=== PATIENT | female | born 1970 | race Caucasian/White ===

== ENCOUNTER 2017-06-17 09:33 | Day surgery (SDC) | payer OTHER ==
[~2017-06-17] VITALS: Ht 157.5 cm; Wt 80.5 kg
[~2017-06-17 09:33] MED LIST: Aspir 8181 MG; ESOM20; Zofran Odt4 MG SL; Zofran4 MG PO
[2018-02-22] MEDS ORDERED: Kristalose20 GM PO (10:30)
== END 2017-06-17 12:15 | disposition home or self-care (01) ==
LOC: ORSCSDS 09:33
PROVIDERS: Surgery
PROC: 0DBP8ZX Excision of Rectum, Via Natural or Artificial Opening Endoscopic, Diagnostic (ICD-10-PCS; principal; 2017-06-17 11:00)
DX: K92.1 Melena (principal); K62.89 Other specified diseases of anus and rectum; K64.8 Other hemorrhoids; R19.4 Change in bowel habit; F17.210 Nicotine dependence, cigarettes, uncomplicated; Z79.82 Long term (current) use of aspirin; Z79.899 Other long term (current) drug therapy
CPT/HCPCS: 88305; J7120

== ENCOUNTER 2018-05-24 10:44 | Emergency (ER) | payer OTHER ==
[~2018-05-24] VITALS: Ht 154.9 cm; Wt 77.1 kg
[~2018-05-24 10:44] MED LIST changes: +Kristalose20 GM PO
[2018-05-24] MEDS ORDERED: Monodox100 MG PO (11:00)
[2018-05-24] MEDS ORDERED: Indomethacin50 MG PO (11:00)
== END 2018-05-24 11:06 | disposition home or self-care (01) ==
LOC: ER 10:44
DX: L03.317 Cellulitis of buttock (principal); Z88.2 Allergy status to sulfonamides; Z88.1 Allergy status to other antibiotic agents; Z88.5 Allergy status to narcotic agent; Z79.899 Other long term (current) drug therapy; F17.210 Nicotine dependence, cigarettes, uncomplicated
CPT/HCPCS: 99283

== ENCOUNTER → 2018-08-18 | Outpatient (CLI) | payer OTHER ==
[~2018-08-18] MED LIST changes: +Indomethacin50 MG PO; +Monodox100 MG PO
== END | disposition home or self-care (01) ==
LOC: LAB SHORT 12:30 → LAB EV 12:30
DX: T81.40XA Infection following a procedure, unspecified, initial encounter (principal)
CPT/HCPCS: 87070; 87077; 87147; 87186; 87205

== ENCOUNTER 2018-09-28 07:52 | Day surgery (SDC) | payer OTHER | END 2018-09-28 22:43 | disposition home or self-care (01) | LOC: WOUND 07:52 | DX: T81.89XA Other complications of procedures, not elsewhere classified, initial encounter (principal); L98.492 Non-pressure chronic ulcer of skin of other sites with fat layer exposed; I50.9 Heart failure, unspecified; D64.9 Anemia, unspecified; J45.909 Unspecified asthma, uncomplicated | CPT/HCPCS: 87070; 87075; 87081; 87205; G0463 ==

== ENCOUNTER 2019-09-22 21:59 | Emergency (ER) | payer OTHER ==
[~2019-09-22] VITALS: Ht 154.9 cm; Wt 90.7 kg
[2019-09-22] MEDS ORDERED: Monodox100 MG PO (22:40)
[2019-09-22] MEDS ORDERED: Flonase 0.05% N16 GM (22:40)
[2019-09-22] MEDS ORDERED: LISI5 PO (23:09)
[2019-09-22] MEDS ORDERED: FURO20 PO (23:09)
[2019-09-22] MEDS ORDERED: OMEP20ER (23:11)
[2019-09-22] MEDS ORDERED: GUAI600T33 PO (23:12)
== END 2019-09-22 23:17 | disposition home or self-care (01) ==
LOC: ER 21:59
DX: J32.9 Chronic sinusitis, unspecified (principal); F17.210 Nicotine dependence, cigarettes, uncomplicated; Z88.2 Allergy status to sulfonamides; Z88.1 Allergy status to other antibiotic agents; Z88.5 Allergy status to narcotic agent; Z88.0 Allergy status to penicillin; Z79.899 Other long term (current) drug therapy
CPT/HCPCS: 99284

== ENCOUNTER 2021-06-10 19:33 | Emergency (ER) | payer OTHER ==
[~2021-06-10] VITALS: Ht 154.9 cm; Wt 86.2 kg
[~2021-06-10 19:33] MED LIST changes: +FURO20 PO; +Flonase 0.05% N16 GM; +GUAI600T33 PO; +LISI5 PO; +OMEP20ER
[2021-06-10 20:41] LABS: BASOPHILS ABSOLUTE AUTO 0.09 K/mm3 (0.00-0.23); BASOPHILS PERCENT AUTO 1 % (0-2); EOSINOPHILS ABSOLUTE AUTO 0.09 K/mm3 (0.00-0.68); EOSINOPHILS PERCENT AUTO 1 % (0-6); Hematocrit 44.2 % (33.0-51.0); IMMATURE GRAN ABSOLUTE AUTO 0.04 K/mm3 (0.00-0.10); IMMATURE GRAN PERCENT AUTO 0 % (0-1); LYMPHOCYTES ABSOLUTE AUTO 2.87 K/mm3 (0.84-5.20); LYMPHOCYTES PERCENT AUTO 21 % (21-46); MONOCYTES ABSOLUTE AUTO 0.77 K/mm3 (0.16-1.47); MONOCYTES PERCENT AUTO 6 % (4-13); Mean Corpuscular HGB 29.8 pg (26.0-34.0); Mean Corpuscular HGB Conc 33.9 g/dL (31.5-36.5); Mean Corpuscular Volume 88 fL (80-100); Mean Platelet Volume 8.7 fL (9.1-12.4); NEUTROPHILS ABSOLUTE AUTO 9.83 K/mm3 (1.96-9.15); NEUTROPHILS PERCENT AUTO 72 % (41-73); Platelet Count 411 K/mm3 (150-400); RDW Standard Deviation 41.8 fL (35.1-46.3); Red Blood Cell Count 5.03 M/mm3 (3.80-5.20); White Blood Cell Count 13.69 K/mm3 (4.00-11.30)
[2021-06-10 21:06] LABS: International Normalized Ratio 0.94; Prothrombin Time Results 9.9 Sec (9.7-11.5)
[2021-06-10 21:42] LABS: Alanine Aminotransfer (ALT/SGP 39 U/L (12-78); Albumin, Blood 3.7 g/dL (3.4-5.0); Alk Phos 126 U/L (50-136); Anion Gap 10 mmol/L (6-16); Aspartate Aminotrans (AST/SGOT 21 U/L (12-37); Bilirubin, Total 0.9 mg/dL (0.1-1.0); Blood Urea Nitrogen 10 mg/dL (8-24); Bun/Creatinine Ratio 16.7 (12.0-20.0); CO2, Blood 24 mmol/L (21-32); Calcium, Blood 8.9 mg/dL (8.5-10.1); Chloride, Blood 100 mmol/L (98-108); Globulin, Blood 3.7 g/dL (2.2-4.0); Glomerular Filtration Rate >60 (60-); Glucose, Blood 118 mg/dL (70-99); Potassium, Blood 3.5 mmol/L (3.5-5.5); Sodium, Blood 134 mmol/L (136-145); Total Protein, Blood 7.4 g/dL (6.4-8.2); Troponin I <0.015 ng/mL (0.000-0.040)
[2021-06-10 23:22] LABS: Hematocrit 41.4 % (33.0-51.0); Hemoglobin 14.1 g/dL (11.5-16.0); Mean Corpuscular HGB Conc 34.1 g/dL (31.5-36.5); Mean Corpuscular Volume 88 fL (80-100); Platelet Count 365 K/mm3 (150-400); RDW Standard Deviation 42.5 fL (35.1-46.3); White Blood Cell Count 12.03 K/mm3 (4.00-11.30)
[2021-06-11 00:28] LABS: Influenza A, PCR NEGATIVE (NEGATIVE); Influenza B, PCR NEGATIVE (NEGATIVE); Resp Syncytial Virus, PCR NEGATIVE (NEGATIVE); SARS-Cov-2 (COVID-19) PCR, MMC NEGATIVE (NEGATIVE)
== END 2021-06-11 02:40 | disposition short-term general hospital (02) ==
LOC: ER 19:33
PROVIDERS: Physician Assistant; Student in an Organized Health Care Education/Training Program
DX: K92.2 Gastrointestinal hemorrhage, unspecified (principal); R00.0 Tachycardia, unspecified; F17.210 Nicotine dependence, cigarettes, uncomplicated; J44.9 Chronic obstructive pulmonary disease, unspecified; Z79.899 Other long term (current) drug therapy; Z88.2 Allergy status to sulfonamides; Z88.0 Allergy status to penicillin
CPT/HCPCS: 0241U; 36415; 71045; 74177; 80053; 82272; 83605; 84484; 84703; 85025; 85027; 85610; 85730; 86850; 86900; 86901; 93005; 93010; 96365-59; 96366; 96367; 96375; 96376; 99285-25; C9113; J0696; J2270; J2354; J2405; J7050; Q9967

== ENCOUNTER 2023-02-20 19:43 | Emergency (ER) | payer OTHER ==
[~2023-02-20] VITALS: Ht 154.9 cm; Wt 77.1 kg
[2023-02-20 20:57] LABS: BASOPHILS ABSOLUTE AUTO 0.06 K/mm3 (0.00-0.23); BASOPHILS PERCENT AUTO 0 % (0-2); EOSINOPHILS ABSOLUTE AUTO 0.06 K/mm3 (0.00-0.68); EOSINOPHILS PERCENT AUTO 0 % (0-6); Hematocrit 43.4 % (33.0-51.0); Hemoglobin 15.1 g/dL (11.5-16.0); IMMATURE GRAN PERCENT AUTO 1 % (0-1); LYMPHOCYTES ABSOLUTE AUTO 1.15 K/mm3 (0.84-5.20); LYMPHOCYTES PERCENT AUTO 7 % (21-46); MONOCYTES ABSOLUTE AUTO 0.87 K/mm3 (0.16-1.47); MONOCYTES PERCENT AUTO 5 % (4-13); Mean Corpuscular HGB 30.1 pg (26.0-34.0); Mean Corpuscular HGB Conc 34.8 g/dL (31.5-36.5); Mean Corpuscular Volume 87 fL (80-100); Mean Platelet Volume 8.8 fL (9.1-12.4); NEUTROPHILS ABSOLUTE AUTO 14.95 K/mm3 (1.96-9.15); NEUTROPHILS PERCENT AUTO 87 % (41-73); Platelet Count 405 K/mm3 (150-400); RDW Coefficient Variation 12.4 % (11.7-14.2); RDW Standard Deviation 39.2 fL (35.1-46.3); Red Blood Cell Count 5.01 M/mm3 (3.80-5.20); White Blood Cell Count 17.19 K/mm3 (4.00-11.30)
[2023-02-20 21:18] LABS: Albumin, Blood 3.5 g/dL (3.4-5.0); Albumin/Globulin Ratio 0.9 (0.8-1.8); Bilirubin, Total 1.6 mg/dL (0.1-1.0); Bun/Creatinine Ratio 19.7 (12.0-20.0); Calcium, Blood 8.9 mg/dL (8.5-10.1); Creatinine, Blood 0.61 mg/dL (0.40-1.00); Globulin, Blood 3.8 g/dL (2.2-4.0); Potassium, Blood 3.8 mmol/L (3.5-5.5); Total Protein, Blood 7.3 g/dL (6.4-8.2)
[2023-02-21 01:55] LABS: Influenza A, PCR NEGATIVE (NEGATIVE); Influenza B, PCR NEGATIVE (NEGATIVE); Resp Syncytial Virus, PCR NEGATIVE (NEGATIVE)
[2023-02-21 02:02] LABS: SARS-Cov-2 (COVID-19) PCR, MMC POSITIVE (NEGATIVE)
[2023-02-21 05:00] VITALS: BP 120/68
== END 2023-02-21 05:35 ==
LOC: ER 19:43
PROVIDERS: Emergency Medicine; Physician Assistant
DX: K43.6 Other and unspecified ventral hernia with obstruction, without gangrene (principal); E86.0 Dehydration; F17.210 Nicotine dependence, cigarettes, uncomplicated; U07.1 COVID-19; I10 Essential (primary) hypertension; F10.20 Alcohol dependence, uncomplicated; D72.829 Elevated white blood cell count, unspecified; K92.0 Hematemesis; J44.9 Chronic obstructive pulmonary disease, unspecified; Z88.5 Allergy status to narcotic agent; Z88.0 Allergy status to penicillin; Z88.1 Allergy status to other antibiotic agents; Z88.2 Allergy status to sulfonamides; Z79.899 Other long term (current) drug therapy
CPT/HCPCS: 0241U; 74177; 80053; 83605; 83690; 85025; 93005; 93010; 96361; 96374; 96375; 99285-25; C9113; J0780; J1200; J7030; Q9967

== ENCOUNTER 2023-03-06 11:26 | Emergency (ER) | payer OTHER ==
[~2023-03-06] VITALS: Ht 154.9 cm; Wt 81.7 kg
[2023-03-06 14:36] LABS: BASOPHILS ABSOLUTE AUTO 0.15 K/mm3 (0.00-0.23); BASOPHILS PERCENT AUTO 2 % (0-2); EOSINOPHILS ABSOLUTE AUTO 1.05 K/mm3 (0.00-0.68); EOSINOPHILS PERCENT AUTO 11 % (0-6); Hematocrit 41.7 % (33.0-51.0); Hemoglobin 13.9 g/dL (11.5-16.0); IMMATURE GRAN ABSOLUTE AUTO 0.08 K/mm3 (0.00-0.10); IMMATURE GRAN PERCENT AUTO 1 % (0-1); LYMPHOCYTES PERCENT AUTO 24 % (21-46); MONOCYTES ABSOLUTE AUTO 0.46 K/mm3 (0.16-1.47); MONOCYTES PERCENT AUTO 5 % (4-13); Mean Corpuscular HGB 29.6 pg (26.0-34.0); Mean Corpuscular HGB Conc 33.3 g/dL (31.5-36.5); Mean Corpuscular Volume 89 fL (80-100); Mean Platelet Volume 8.3 fL (9.1-12.4); NEUTROPHILS ABSOLUTE AUTO 5.72 K/mm3 (1.96-9.15); NEUTROPHILS PERCENT AUTO 59 % (41-73); Platelet Count 630 K/mm3 (150-400); RDW Coefficient Variation 12.6 % (11.7-14.2); RDW Standard Deviation 40.8 fL (35.1-46.3); Red Blood Cell Count 4.69 M/mm3 (3.80-5.20); White Blood Cell Count 9.76 K/mm3 (4.00-11.30)
[2023-03-06 14:54] LABS: C-REACTIVE PROTEIN, EXT RANGE 1.02 mg/dL (0.000-0.300)
[2023-03-06 15:07] LABS: Albumin, Blood 3.5 g/dL (3.4-5.0); Albumin/Globulin Ratio 0.9 (0.8-1.8); Bilirubin, Total 0.1 mg/dL (0.1-1.0); Bun/Creatinine Ratio 14.7 (12.0-20.0); Calcium, Blood 8.9 mg/dL (8.5-10.1); Creatinine, Blood 0.54 mg/dL (0.40-1.00); Globulin, Blood 4.1 g/dL (2.2-4.0); Potassium, Blood 3.9 mmol/L (3.5-5.5); Total Protein, Blood 7.6 g/dL (6.4-8.2)
[2023-03-06] MEDS ORDERED: Flagyl500 MG PO (16:53)
[2023-03-06] MEDS ORDERED: Cipro500 MG PO (16:53)
[2023-03-06 17:11] VITALS: BP 143/104
== END 2023-03-06 17:11 | disposition home or self-care (01) ==
LOC: ER 11:26
PROVIDERS: Physician Assistant
DX: T81.31XA Disruption of external operation (surgical) wound, not elsewhere classified, initial encounter (principal); Z88.2 Allergy status to sulfonamides; Z88.5 Allergy status to narcotic agent; Z88.1 Allergy status to other antibiotic agents; Z88.0 Allergy status to penicillin; J44.9 Chronic obstructive pulmonary disease, unspecified; F17.210 Nicotine dependence, cigarettes, uncomplicated
CPT/HCPCS: 74177; 80053; 85025; 86140; 99284-25; A9270; Q9967

== ENCOUNTER → 2023-04-08 | Outpatient (CLI) | payer OTHER ==
[~2023-04-08] MED LIST changes: +Cipro500 MG PO; +Flagyl500 MG PO
[2023-04-08 16:02] LABS: BASOPHILS ABSOLUTE AUTO 0.12 K/mm3 (0.00-0.23); BASOPHILS PERCENT AUTO 1 % (0-2); EOSINOPHILS ABSOLUTE AUTO 0.43 K/mm3 (0.00-0.68); EOSINOPHILS PERCENT AUTO 4 % (0-6); Hematocrit 39.8 % (33.0-51.0); Hemoglobin 13.5 g/dL (11.5-16.0); IMMATURE GRAN ABSOLUTE AUTO 0.03 K/mm3 (0.00-0.10); IMMATURE GRAN PERCENT AUTO 0 % (0-1); LYMPHOCYTES ABSOLUTE AUTO 2.41 K/mm3 (0.84-5.20); LYMPHOCYTES PERCENT AUTO 21 % (21-46); MONOCYTES ABSOLUTE AUTO 0.72 K/mm3 (0.16-1.47); MONOCYTES PERCENT AUTO 6 % (4-13); Mean Corpuscular HGB 29.5 pg (26.0-34.0); Mean Corpuscular HGB Conc 33.9 g/dL (31.5-36.5); Mean Corpuscular Volume 87 fL (80-100); Mean Platelet Volume 8.9 fL (9.1-12.4); NEUTROPHILS ABSOLUTE AUTO 7.59 K/mm3 (1.96-9.15); NEUTROPHILS PERCENT AUTO 67 % (41-73); Platelet Count 576 K/mm3 (150-400); RDW Coefficient Variation 12.5 % (11.7-14.2); RDW Standard Deviation 39.8 fL (35.1-46.3); Red Blood Cell Count 4.57 M/mm3 (3.80-5.20)
[2023-04-08 16:23] LABS: Albumin, Blood 3.2 g/dL (3.4-5.0); Albumin/Globulin Ratio 0.8 (0.8-1.8); Bilirubin, Total 0.3 mg/dL (0.1-1.0); Bun/Creatinine Ratio 19.2 (12.0-20.0); Calcium, Blood 9.1 mg/dL (8.5-10.1); Creatinine, Blood 0.57 mg/dL (0.40-1.00); Globulin, Blood 4.2 g/dL (2.2-4.0); Potassium, Blood 3.8 mmol/L (3.5-5.5); Total Protein, Blood 7.4 g/dL (6.4-8.2)
[2023-04-13 11:23] LABS: HEMOGLOBIN A1C 5.8 % (4.8-5.6)
== END ==
LOC: LAB 14:47 → LAB SHORT 14:47
PROVIDERS: Physician Assistant
DX: Z13.6 Encounter for screening for cardiovascular disorders (principal); E78.2 Mixed hyperlipidemia; K43.6 Other and unspecified ventral hernia with obstruction, without gangrene; K92.1 Melena; R73.03 Prediabetes
CPT/HCPCS: 80053; 83036; 85025

== ENCOUNTER 2025-03-03 11:04 | Emergency (ER) | payer OTHER ==
[~2025-03-03] VITALS: Ht 154.9 cm; Wt 77.1 kg
[2025-03-03 11:58] LABS: BASOPHILS ABSOLUTE AUTO 0.06 K/mm3 (0.00-0.23); BASOPHILS PERCENT AUTO 1 % (0-2); EOSINOPHILS ABSOLUTE AUTO 0.13 K/mm3 (0.00-0.68); EOSINOPHILS PERCENT AUTO 1 % (0-6); Hematocrit 43.9 % (33.0-51.0); Hemoglobin 14.6 g/dL (11.5-16.0); IMMATURE GRAN ABSOLUTE AUTO 0.02 K/mm3 (0.00-0.10); IMMATURE GRAN PERCENT AUTO 0 % (0-1); LYMPHOCYTES ABSOLUTE AUTO 1.29 K/mm3 (0.84-5.20); LYMPHOCYTES PERCENT AUTO 13 % (21-46); MONOCYTES ABSOLUTE AUTO 0.48 K/mm3 (0.16-1.47); MONOCYTES PERCENT AUTO 5 % (4-13); Mean Corpuscular HGB Conc 33.3 g/dL (31.5-36.5); Mean Corpuscular Volume 83 fL (80-100); NEUTROPHILS ABSOLUTE AUTO 7.74 K/mm3 (1.96-9.15); NEUTROPHILS PERCENT AUTO 80 % (41-73); NRBC ABSOLUTE 0.00 K/mm3 (0.00-0.02); NRBC Auto 0.0 /100 WBC (0.0-0.2); Platelet Count 380 K/mm3 (150-400); RDW Coefficient Variation 13.2 % (11.7-14.2); RDW Standard Deviation 40.3 fL (35.1-46.3)
[2025-03-03 12:32] LABS: Alanine Aminotransfer (ALT/SGP 29 U/L (12-78); Albumin, Blood 3.8 g/dL (3.4-5.0); Albumin/Globulin Ratio 0.9 (0.8-1.8); Anion Gap 9 mmol/L (3-11); Aspartate Aminotrans (AST/SGOT 19 U/L (12-37); Bilirubin, Total 0.5 mg/dL (0.1-1.0); Blood Urea Nitrogen 15 mg/dL (8-24); CO2, Blood 27 mmol/L (21-32); Calcium, Blood 9.6 mg/dL (8.5-10.1); Chloride, Blood 100 mmol/L (98-108); Creatinine, Blood 0.69 mg/dL (0.40-1.00); Ethanol (Alcohol), Blood, Med <3 mg/dL; Globulin, Blood 4.1 g/dL (2.2-4.0); Glucose, Blood 157 mg/dL (70-99); Potassium, Blood 3.6 mmol/L (3.5-5.5); Sodium, Blood 132 mmol/L (136-145); Total Protein, Blood 7.9 g/dL (6.4-8.2)
[2025-03-03] MEDS ORDERED: Ondansetron HCl 2 MG / ML 2ML Vial IV ONE (13:25)
[2025-03-03 14:17] LABS: U Amphetamine Screen DETECTED; U Barbiturate Screen Not Detected; U Benzodiazapine Screen Not Detected; U Buprenorphine Screen Not Detected; U Cannabinoids Screen Not Detected; U Cocaine Screen Not Detected; U Methadone Screen Not Detected; U Methamphetamine Screen DETECTED; U Opiates Screen Not Detected; U Oxycodone Screen Not Detected; U Phencyclidine Screen Not Detected
[2025-03-03 15:00] VITALS: BP 134/78
== END 2025-03-03 15:30 | disposition home or self-care (01) ==
LOC: ER 11:04
PROVIDERS: Emergency Medicine
DX: T43.621A Poisoning by amphetamines, accidental (unintentional), initial encounter (principal); T43.651A Poisoning by methamphetamines accidental (unintentional), initial encounter; R53.83 Other fatigue; F17.210 Nicotine dependence, cigarettes, uncomplicated
CPT/HCPCS: 80053; 80320; 84703; 85025; 93005; 93010; 96374; 99284-25; J2405